=== PATIENT | male | born 1970 | race Caucasian/White ===

== ENCOUNTER → 2017-07-27 | Outpatient (CLI) | payer OTHER | LOC: CIMAGING 13:04 | PROVIDERS: ATTEND Internal Medicine | DX: M17.11 Unilateral primary osteoarthritis, right knee (principal) | CPT/HCPCS: 73562-PO ==

== ENCOUNTER 2018-05-09 09:45 | Emergency (ER) | payer OTHER ==
[2018-05-09] MEDS ORDERED: NS 1,000 ML IV ONE (10:14)
[2018-05-09] MEDS ORDERED: fentaNYL 100 MCG/2 ML INJ IVP ONE (10:14)
--- NOTE | 2018-05-09 10:18 | EDPHY ---
H & P Time Seen by Provider: 05/09/18 10:12 HPI/ROS: Chief Complaint: Rectal pain HPI: Healthy 48-year-old male presenting with 2 days of worsening rectal pain. Patient is describing as a pain deep in his rectum, primarily in the left hand side. When he palpates in that area he feels a mass which is tender. He does have a history of hemorrhoids but does not believe they are inflamed at this time. He had a similar episode several months ago and was seen by primary physician who was not able to find anything. No diarrhea or constipation. He did have some bright red blood in his stool couple of days ago. No melena. No abdominal pain. No nausea or vomiting. No fevers or chills. ROS: 10 systems were reviewed and were negative except those elements noted in the HPI. PMH: Lumbar diskectomy Social History: Positive smoking, occasional alcohol, occasional marijuana Family History: non-contributory Physical Exam: Gen: Awake, Alert, No Distress HEENT: Nose: no rhinorrhea Eyes: PERRLA, EOMI Mouth: Moist mucosa Neck: Supple, no JVD Chest: nontender, lungs clear to auscultation Heart: S1, S2 normal, no murmur Abd: Soft, non-tender, no guarding Rectal exam: Patient has none inflamed external hemorrhoids. On rectal exam there is a palpable fullness/mass in the left perirectal area begins approximately 1-2 cm in the rectum, is not involve the anal verge, and extends deep several cm. It is tender to the touch. Questionable fluctuance. Back: no CVA tenderness, no midline tenderness Ext: no edema, non-tender Skin: no rash Neuro: CN II-XII intact, Sensation grossly intact, Strength 5/5 in bilateral upper and lower extremities Constitutional: Initial Vital Signs Temperature (C) 36.8 C 05/09/18 10:35 Heart Rate 109 H 05/09/18 10:35 Respiratory Rate 20 05/09/18 10:35 Blood Pressure 129/98 H 05/09/18 10:35 O2 Sat (%) 97 05/09/18 10:35 O2 Delivery Mode Room Air Allergies/Adverse Reactions: No Known Allergies Allergy (Verified 12/01/12 14:26) Home Medications: Medication Instructions Recorded Miscellaneous Medical Supply [NO 1 ea MISC AD 12/01/12 HOME MEDS] Amoxicillin/Clavulanate Pot 875 mg PO BID #20 tab 05/09/18 [Augmentin 875 MG TAB (*)] Hydrocodone/Acetaminophen 1 - 2 each PO Q4-6PRN PRN #10 05/09/18 [Hydrocodon-Acetaminophen 5-325] tablet Medical Decision Making - Diagnostics Imaging Results: Imaging Impressions Abdomen CT 05/09/18 10:13 Impression: Early left perianal abscess, possibly related to a foreign body perforation, with edema extending superiorly above the level of the levator sling. Consider MRI without and with contrast for further evaluation. Results called to Dr. Malone at 11:47 AM. General information for patients regarding this examination can be found at [email or web address]. If you have questions or comments about this report, please contact me at [phone] (hospital) or [phone] (cell). Imaging: Discussed imaging studies w/ crew caller Radiologist ED Course/Re-evaluation: CT scan results noted. Patient's white count is 15.4. I have paged the on- call surgeon. I have discussed the case with Dr. Hurd, general surgery. He has reviewed the CT scan results. He is recommending nonsurgical treatment at this time. He is requesting a single dose of IV Invanz now and then start the patient on Augmentin. Will also start the patient on Metamucil 2 tbsp twice a day. He would like the patient to return to the emergency department tomorrow for a repeat CBC to make sure that his white count is improving. If his white count continues to improve he can continue on oral antibiotics and follow-up with General surgery as an outpatient. Dr. Hurd is on-call until next Tuesday and will be available for consultation. The patient return sooner for any concerns. His pain is currently controlled. He is certainly nontoxic in appearance. - Data Points Laboratory Results: 05/09/18 10:24 POC Sodium 145 mEq/L mEq/L (135-145) POC Potassium 3.1 mEq/L L mEq/L (3.3-5.0) POC Chloride 104.0 mEq/L mEq/L (97-110) POC Total CO2 22 mEq/L mEq/L (22-31) POC BUN 13 mg/dL mg/dL (7-23) POC Creatinine 0.7 mg/dL mg/dL (0.7-1.3) POC Glucose 116 mg/dL H mg/dL (70-100) POC Calcium 9.7 mg/dL mg/dL (8.5-10.4) Medications Given: Discontinued Medications Fentanyl (Sublimaze) 50 mcg IVP EDNOW ONE Stop: 05/09/18 10:15 Last Admin: 05/09/18 10:26 Dose: 50 mcg Sodium Chloride (Ns) 1,000 mls @ 0 mls/hr IV ONCE ONE; Wide Open PRN Reason: Protocol Stop: 05/09/18 10:15 Last Admin: 05/09/18 10:27 Dose: 1,000 mls Ertapenem 1 gm/ Sodium (Chloride) 100 mls @ 200 mls/hr IV EDNOW ONE PRN Reason: Protocol Stop: 05/09/18 12:45 Last Admin: 05/09/18 12:37 Dose: 100 mls Ketorolac Tromethamine (Toradol) 15 mg IVP EDNOW ONE Stop: 05/09/18 12:41 Last Admin: 05/09/18 12:46 Dose: 15 mg Point of Care Test Results: CBC CBC Collection Date 05/09/18 CBC Collection Time 10:20 WBC 15.4 RBC 4.87 HGB 15.9 HCT 44.6 PLT 281 Neut # 11.3 Neut 72.9 LYMPH # 2.8 LYMPH 18.4 Other WBC # 1.3 Other WBC 8.7 MCV 91.6 Chemistry 05/09/18 10:24 POC Sodium 145 mEq/L mEq/L (135-145) POC Potassium 3.1 mEq/L L mEq/L (3.3-5.0) POC Chloride 104.0 mEq/L mEq/L (97-110) POC Total CO2 22 mEq/L mEq/L (22-31) POC BUN 13 mg/dL mg/dL (7-23) POC Creatinine 0.7 mg/dL mg/dL (0.7-1.3) POC Glucose 116 mg/dL H mg/dL (70-100) POC Calcium 9.7 mg/dL mg/dL (8.5-10.4) Departure - Departure Disposition: Home, Routine, Self-Care Clinical Impression: Perianal abscess Condition: Good Instructions: Rectal Abscess (ED) Additional Instructions: Return to the emergency department tomorrow for repeat blood test. Please take your full course of antibiotics. You may take hydrocodone with acetaminophen as needed for pain. Take Metamucil, 2 tbsp dissolved in liquid twice a day. Return for worsening pain, uncontrolled fevers or chills, nausea vomiting, fainting, or any other concerns. Referrals: Francisco Turner MD [Primary Care Provider] - As per Instructions Prescriptions: Amoxicillin/Clavulanate Pot [Augmentin 875 MG TAB (*)] 875 mg PO BID #20 tab Hydrocodone/Acetaminophen [Hydrocodon-Acetaminophen 5-325] 1 - 2 each PO Q4- 6PRN PRN #10 tablet PRN Reason: Pain, Severe
[2018-05-09] MEDS ORDERED: IOPAMIDOL (ISOVUE-300) 100 ML BTL ONE (10:54)
[2018-05-09] MEDS ORDERED: ERTAPENEM 1 GM in NS 100 ML IV ONE (12:16)
[2018-05-09] MEDS ORDERED: KETOROLAC 15 MG/1 ML SDV IVP ONE (12:40)
[2018-05-09 14:49] VITALS: BP 104/68
== END 2018-05-09 13:47 | disposition home or self-care (01) ==
LOC: CED 09:45
DX: K61.0 Anal abscess (principal); E86.9 Volume depletion, unspecified
CPT/HCPCS: 74177-PO; 80048-PO; 96365; J1335; J1885; J3010; Q9967

== ENCOUNTER 2018-05-10 10:40 | Emergency (ER) | payer OTHER | END 2018-05-10 10:53 | disposition left against medical advice (07) | LOC: CED 10:40 | DX: Z53.21 Procedure and treatment not carried out due to patient leaving prior to being seen by health care provider (principal) ==